=== PATIENT | male | born 1990 | race Caucasian/White ===

== ENCOUNTER 2018-09-23 23:06 | Emergency (ER) | payer OTHER ==
[2018-09-23 23:11] VITALS: BP 131/75; PULSE 94; TEMP 98.7; BMI 37.8
[2018-09-23] MEDS ORDERED: predniSONE 20 MG TABLET (UD) PO ONE (23:27)
[2018-09-23] MEDS ORDERED: ACYCLOVIR 400 MG TABLET PO ONE (23:27)
[2018-09-23] MEDS ORDERED: predniSONE 20 MG TABLET (UD) ONE (23:31)
[2018-09-23] MEDS ORDERED: ACYCLOVIR 400 MG TABLET ONE (23:31)
--- NOTE | 2018-09-23 23:33 | PDOC ---
History of Present Illness - General History Source: Patient Exam Limitations: No Limitations - History of Present Illness Initial Comments: 09/23/18 23:33 A portion of this note was documented by scribe services under my direction. I have reviewed the details of the note, within reason, and agree with the documentation with the following case summary and management plan written by me. Patient treated in the ED. Nursing notes are reviewed and incorporated into the medical decision-making. Vital signs reviewed. Assessment plan: This is a 28-year-old male who comes in complaining of left facial droop. 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 CAT scan was obtained Patient discharged home will follow-up with his primary care doctor. <Merlin Lubin I - Last Filed: 09/23/18 23:26> - General History Source: Patient Exam Limitations: No Limitations - History of Present Illness Initial Comments: 09/23/18 23:39 The patient is a 28 year old male with a significant PMH of asthma and diabetes who presents to the emergency department with left sided facial numbness since earlier today. The patient reports that he had eaten some leftover turkey today and soon after began feeling some itching in his throat by which he took Benadryl. The patient reports that soon after taking the benadryl he began to experience some pain behind his left ear as well as left sided facial and tongue numbness and inability to move his right side face. The patient reports that he is concerned for a allergic reaction. He states that his only known food allergy is to calamari. The patient reports some slight numbness in his fingertips of left hand on exam. He denies any other symptoms or complaints. He denies any other body numbness, weakness or tingling sensations. PAST MEDICAL HISTORY: asthma, diabetes PAST SURGICAL HISTORY: no significant history FAMILY HISTORY: no pertinent history SOCIAL HISTORY: Pt lives with family and is employed. MEDICATIONS: reviewed ALLERGIES: As per nursing notes General: No fevers or chills, no weakness, no weight loss HEENT: (+)sore throat, left ear pain. No change in vision. CardioVascular: No chest pain or shortness of breath Respiratory:No cough, or wheezing. Gastrointestinal: no nausea, vomiting, diarrhea or constipation, No rectal bleeding Genitourinary: No dysuria, hematuria, or frequency Musculoskeletal: No joint or muscle pain or swelling Neurologic: (+) left sided facial numbness.No headache, vertigo, dizziness or loss of consciousness Psychiatric: nor depression Skin: No rashes or easy bruising Endocrine: no increased thirst or abnormal weight change Allergic: no skin or latex allergy All other systems reviewed and normal General: Well-nourished well-developed individual, no acute distress HEENT: Throat: Normal, tonsils normal, no erythema or exudate Neck: Supple, no meningeal signs, no lymphadenopathy Eyes::Pupils equal reactive and round, extraocular motion intact Chest: Nontender to palpation Cardiac: S1-S2 normal, regular rate and rhythm, no murmurs rubs or gallops Respiratory: Lungs clear to auscultation bilateral Abdomen: Soft, nondistended, normal bowel sounds, nontender to palpation diffusely Extremities: Warm, dry, no cyanosis, clubbing, or edema Skin: No rashes Neuro: (+)facial droop (forehead involved). Alert and oriented x3, nonfocal exam , grossly intact, normal gait Psych: Normal mood and affect <Kelsi Araiza - Last Filed: 09/23/18 23:39> - General Chief Complaint: CVA/TIA Stated Complaint: NUMBNESS TO LEFT SIDE FACE Time Seen by Provider: 09/23/18 23:08 Past History - Past Medical History Asthma: Yes COPD: No Diabetes: Yes - Surgical History Appendectomy: Yes (2016) - Immunization History Immunization Up to Date: Yes - Suicide/Smoking/Psychosocial Hx Smoking History: Never smoked Have you smoked in the past 12 months: No Information on smoking cessation initiated: No Hx Alcohol Use: No Drug/Substance Use Hx: No Substance Use Type: None <Merlin Lubin I - Last Filed: 09/23/18 23:26> <Kelsi Araiza - Last Filed: 09/23/18 23:39> - Past Medical History Allergies/Adverse Reactions: Allergies Allergy/AdvReac Type Severity Reaction Status Date / Time pollen extracts Allergy Verified 09/23/18 23:08 squid Allergy Verified 09/23/18 23:08 Home Medications: Ambulatory Orders Naltrexone HCl/Bupropion HCl [Contrave ER 8-90 mg Tablet] 1 each PO DAILY Acyclovir [Zovirax -] 400 mg PO DAILY #10 tablet 09/23/18 Prednisone [Deltasone] 80 mg PO DAILY #40 tablet 09/23/18 Sitagliptin Phosphate [Januvia] 100 mg PO DAILY 09/23/18 *Physical Exam - Vital Signs Last Vital Signs Temp Pulse Resp BP Pulse Ox 98.7 F 94 H 18 131/75 100 09/23/18 23:08 09/23/18 23:08 09/23/18 23:08 09/23/18 23:08 09/23/18 23:08 <Merlin Lubin I - Last Filed: 09/23/18 23:26> - Vital Signs Last Vital Signs Temp Pulse Resp BP Pulse Ox 98.7 F 94 H 18 131/75 97 09/23/18 23:08 09/23/18 23:08 09/23/18 23:08 09/23/18 23:08 09/23/18 23:24 <Kelsi Araiza - Last Filed: 09/23/18 23:39> Moderate Sedation - Procedure Monitoring Vital Signs: Procedure Monitoring Vital Signs Temperature 98.7 F 09/23/18 23:08 Pulse Rate 94 H 09/23/18 23:08 Respiratory Rate 18 09/23/18 23:08 Blood Pressure 131/75 09/23/18 23:08 O2 Sat by Pulse Oximetry (%) 100 09/23/18 23:08 <Merlin Lubin I - Last Filed: 09/23/18 23:26> - Procedure Monitoring Vital Signs: Procedure Monitoring Vital Signs Temperature 98.7 F 09/23/18 23:08 Pulse Rate 94 H 09/23/18 23:08 Respiratory Rate 18 09/23/18 23:08 Blood Pressure 131/75 09/23/18 23:08 O2 Sat by Pulse Oximetry (%) 97 09/23/18 23:24 <Kelsi Araiza - Last Filed: 09/23/18 23:39> ED Treatment Course - RADIOLOGY Radiology Studies Ordered: Category Date Time Status HEAD CT WITHOUT CONTRAST [CT] Stat CT Scan 09/23/18 23:13 Ordered <Merlin Lubin I - Last Filed: 09/23/18 23:26> - Medications Given in the ED: ED Medications Discontinued Medications Generic Name Dose Route Start Last Admin Trade Name Freq PRN Reason Stop Dose Admin Acyclovir 400 mg 09/23/18 23:27 09/23/18 23:35 Zovirax - PO 09/23/18 23:28 400 mg ONCE ONE Administration Prednisone 80 mg 09/23/18 23:27 09/23/18 23:35 Deltasone - PO 09/23/18 23:28 80 mg ONCE ONE Administration <Kelsi Araiza - Last Filed: 09/23/18 23:39> *DC/Admit/Observation/Transfer <Merlin Lubin I - Last Filed: 09/23/18 23:26> - Attestations Scribe Attestion: 09/23/18 23:39 Documentation prepared by Kelsi Araiza, acting as medical science liaison for Merlin Lubin MD. <Kelsi Araiza - Last Filed: 09/23/18 23:39> Diagnosis at time of Disposition: Hamm's palsy - Discharge Dispostion Disposition: HOME - Prescriptions Prescriptions: Acyclovir [Zovirax -] 400 mg PO DAILY #10 tablet Prednisone [Deltasone] 80 mg PO DAILY #40 tablet - Patient Instructions Additional Instructions: Take acyclovir 400 mg a day for 10 days Take prednisone 80 mg a day for 5 days then 60 mg a day for 2 days, 40 mg a day for 2 days and 20 mg a day for 2 days. Return to the emergency department immediately with ANY new, persistent or worsening symptoms. Continue any medications as previously prescribed by your physician. You should follow up with your primary doctor as soon as possible regarding today's emergency department visit. . Please make sure your doctor reviews the results of your emergency evaluation. Thank you for coming to the Emergency Department today for your care. It was a pleasure to see you today. Please note that your evaluation is INCOMPLETE until you follow-up with your doctor.
== END 2018-09-24 00:56 | disposition home or self-care (01) ==
LOC: FER 23:06
DX: G51.0 Bell's palsy (principal); E11.9 Type 2 diabetes mellitus without complications; J45.909 Unspecified asthma, uncomplicated
CPT/HCPCS: 70450-TC; 99285-25

== ENCOUNTER 2018-10-17 15:07 | Emergency (ER) | payer OTHER ==
[2018-10-17 15:14] VITALS: BP 128/81; PULSE 96; TEMP 98.5; BMI 38.6
--- NOTE | 2018-10-17 16:13 | PDOC ---
History of Present Illness - General History Source: Patient Exam Limitations: No Limitations <Christina Cedillo - Last Filed: 10/17/18 16:51> <Gideon Freeman - Last Filed: 10/17/18 17:40> - General Chief Complaint: Chest Pain Stated Complaint: CHEST TIGHTNESS, ANXIETY, JITTERY Time Seen by Provider: 10/17/18 15:25 - History of Present Illness Initial Comments: 10/17/18 16:44 The patient is a 28-year-old male with a past medical history significant for asthma, DM and Hamm's palsy (L. eye diplopia and blurry vision) presents to the emergency department with chest pressure. The patient presents with nonexertional, episodic chest pressure, localized to the right chest wall, with no associated symptoms. The patient reports the pain would last for an hour before dissipating. The patient reports an additional concern of upper extremity shaking that presented last night. The patient reports hes been experiencing increased stress secondary to work and family matter. The patient reports he was out of work for a while and returned on . The patient reports he wears sunglasses secondary to photophobia to the Left eye. Denies nausea, vomiting, abdominal pain, diaphoresis, leg pain/swelling, cough, fever, chills, diarrhea, melena, hematochezia, dysuria, hematuria, frequency or urgency to urinate. The patient reports he has L. arm weakness secondary to Hamm s Allergies: PCP: Appointment with new PCP on November 10, Dr. Christina. Neurology: Appointment on the with Dr. Styles at [facility]. (Christina Cedillo) Past History <Christina Cedillo - Last Filed: 10/17/18 16:51> - Past Medical History Asthma: Yes COPD: No Diabetes: Yes - Surgical History Appendectomy: Yes (2015) - Immunization History Immunization Up to Date: Yes - Suicide/Smoking/Psychosocial Hx Smoking History: Never smoked Have you smoked in the past 12 months: No Information on smoking cessation initiated: No Hx Alcohol Use: (occasional) Drug/Substance Use Hx: No Substance Use Type: None <Gideon Freeman - Last Filed: 10/17/18 17:40> - Past Medical History Allergies/Adverse Reactions: Allergies Allergy/AdvReac Type Severity Reaction Status Date / Time pollen extracts Allergy Verified 10/17/18 15:08 squid Allergy Verified 10/17/18 15:08 Home Medications: Ambulatory Orders Naltrexone HCl/Bupropion HCl [Contrave ER 8-90 mg Tablet] 1 each PO DAILY Sitagliptin Phosphate [Januvia] 100 mg PO DAILY 09/23/18 Albuterol Sulfate Inhaler - [Ventolin Hfa Inhaler -] 1 - 2 inh PO QID PRN Alprazolam [Xanax] 0.25 mg PO Q12H PRN #10 tablet MDD 2 10/17/18 Review of Systems <Christina Cedillo - Last Filed: 10/17/18 16:51> - Review of Systems Able to Perform ROS?: Yes <Gideon Freeman - Last Filed: 10/17/18 17:40> - Review of Systems Comments:: 10/17/18 16:29 Constitutional - +jittery/shaky no reported Fever, Chills, HEENT: no reported vision changes, sore throat Respiratory: no reported cough, sob, hemoptysis Cardiac: +chest pain no reported palpitations, light headedness, leg swelling Abd/GI: no reported abd pain, nausea, vomiting, blood per rectum, melena, diarrhea : no reported dysuria, frequency, discharge Musculskelatal - no reported back pain, joint swelling skin - no reported bruising, erythema, rash neurological: no reported headache, numbness, focal weakness, tingling, ataxia, hematologic: no reported easy bruising, easy bleeding (Gideon Freeman) *Physical Exam <Christina Cedillo - Last Filed: 10/17/18 16:51> <Gideon Freeman - Last Filed: 10/17/18 17:40> - Vital Signs Last Vital Signs Temp Pulse Resp BP Pulse Ox 98.5 F 96 H 18 128/81 100 10/17/18 15:07 10/17/18 15:07 10/17/18 15:07 10/17/18 15:07 10/17/18 15:07 - Physical Exam Comments: 10/17/18 16:30 GENERAL: The patient is awake, alert, and fully oriented, Nontoxic - in no acute distress. HEAD: Normocephalic, atraumatic. EYES: extraocular movements intact, sclera anicteric, conjunctiva clear. ENT: Normal voice, Moist mucous membranes. NECK: Normal range of motion, supple LUNGS: Breath sounds equal, clear to auscultation bilaterally. No wheezes, no rhonchi, no rales. HEART: Regular rate and rhythm, normal S1 and S2 without murmur, rub or gallop. reproducible ttp to R chest wall w/o rashes ABDOMEN: Soft, nontender, normoactive bowel sounds. No guarding, no rebound. . No CVA tenderness EXTREMITIES: Normal range of motion, no edema. NEUROLOGICAL: L facial droop, Normal speech, intention tremors of R hand PSYCH: Normal mood, anxious appearing SKIN: Warm, Dry, normal turgor, (Gideon Freeman) Heart Score/ECG Review <Christina Cedillo - Last Filed: 10/17/18 16:51> <Gideon Freeman - Last Filed: 10/17/18 17:40> - ECG Impressions Comment:: 10/17/18 16:35 Twelve-lead EKG was performed and reviewed by me. There is normal sinus rhythm with a normal rate. rate of 96 The axis is normal. The intervals are normal. There is normal R wave progression nonspecific TWI (Gideon Freeman) - ADDITIONAL ORDERS Additional order review: Laboratory Results 10/17/18 15:19 POC Glucometer 126 10/17/18 15:19 POC Glucometer 126 - RADIOLOGY Radiology Studies Ordered: Category Date Time Status CHEST PA & LAT [RAD] Stat Radiology 10/17/18 16:26 Taken - Medications Given in the ED: ED Medications Discontinued Medications Generic Name Dose Route Start Last Admin Trade Name Cammie PRN Reason Stop Dose Admin Alprazolam 0.25 mg 10/17/18 16:27 10/17/18 16:32 Xanax - PO 10/17/18 16:28 0.25 mg ONCE ONE Administration Ibuprofen 400 mg 10/17/18 16:26 10/17/18 16:32 Motrin - PO 10/17/18 16:27 400 mg ONCE ONE Administration Medical Decision Making <Christina Cedillo - Last Filed: 10/17/18 16:51> <Gideon Freeman - Last Filed: 10/17/18 17:40> - Medical Decision Making 10/17/18 16:37 28y M hx recent hx of bells palsy presents with 1 eday of feeling shaky, intermittent R sided chest pressur ethat is reproducible to palpation, and feeling anxious - no exertional symptoms, his sx are presentw hen he starts thinking about work and his wifes immigration case but resolves when he is distracted. ekg here is non ischemic will obtain cxr to r/o acute pulm disease tylenol for his msk pain and xanax for anxiety low suspicion for acs - suspect anxiety related A portion of this note was documented by scribe services under my direction. I have reviewed the details of the note, within reason, and agree with the documentation with the following case summary and management plan written by me 10/17/18 17:34 pt feeling better cxr negative will dc with pmd fu will give a couple of doses of xanax to help him cope I discussed the physical exam findings, ancillary test results and final diagnoses with the patient. I answered all of the patient's questions. The patient was satisfied with the care received and felt comfortable with the discharge plan and treatment plan. The patient will call their primary care physician within 24 hours to arrange follow-up and will return to the Emergency Department with any new, persistent or worsening symptoms. (Gideon Freeman) *DC/Admit/Observation/Transfer <Christina Cedillo - Last Filed: 10/17/18 16:51> - Discharge Dispostion Decision to Admit order: No <Gideon Freeman - Last Filed: 10/17/18 17:40> Diagnosis at time of Disposition: Anxiety - Discharge Dispostion Disposition: HOME Condition at time of disposition: Improved - Referrals Referrals: [facility] [place] [facility] [place] [Provider Group] - Patient Instructions Printed Discharge Instructions: DI for Anxiety -- Adult Additional Instructions: Return to the emergency department immediately with ANY new, persistent or worsening symptoms including shortness of breath, chest pain when you are exerting yourself, or any other concerns. I suspect that your symptoms may be due to anxiety. Take the Xanax as prescribed if you feel anxious. Dont take it when driving or anywhere you can put yourself or others at risk. You MUST call and follow up with your doctor in 4-5 days for further evaluation of your symptoms. Results were discussed with you. Please make sure your doctor reviews the results of your emergency evaluation. Print Language: VIETNAMESE - Attestations Scribe Attestion: 10/17/18 16:45 Documentation prepared by Christina Cedillo, acting as medical facilities section director for Gideon Freeman MD. (Christina Cedillo)
[2018-10-17] MEDS ORDERED: IBUPROFEN 400 MG TABLET (FP) PO ONE ×2 (16:26→16:28)
[2018-10-17] MEDS ORDERED: ALPRAZolam 0.25 MG TABLET PO ONE (16:27)
[2018-10-17] MEDS ORDERED: ALPRAZolam 0.25 MG TABLET ONE (16:29)
--- NOTE | 2018-10-19 10:41 | EKG ---
Test Reason : Blood Pressure : / mmHG Vent. Rate : 096 BPM Atrial Rate : 096 BPM P-R Int : 132 ms QRS Dur : 090 ms QT Int : 338 ms P-R-T Axes : -01 -11 014 degrees QTc Int : 427 ms NORMAL SINUS RHYTHM NONSPECIFIC T WAVE ABNORMALITY ABNORMAL ECG NO PREVIOUS ECGS AVAILABLE Confirmed by EILEEN BRYANT, VALENCIA ([id number]) on 10/19/2018 10:41:15 AM Referred By: IRVIN Confirmed By:VALENCIA ARELLANO MD
== END 2018-10-17 17:55 | disposition home or self-care (01) ==
LOC: FER 15:07
DX: F41.9 Anxiety disorder, unspecified (principal)
CPT/HCPCS: 71046-TC-FY; 82962; 93005; 99284-25

== ENCOUNTER 2019-09-08 12:38 | Emergency (ER) | payer OTHER ==
[2019-09-08 12:53] VITALS: BP 117/76; PULSE 106; TEMP 98.5; BMI 37.4
--- NOTE | 2019-09-08 14:10 | PDOC ---
History of Present Illness - General Chief Complaint: Sore Throat Stated Complaint: POS FOR STREP Time Seen by Provider: 09/08/19 13:06 - History of Present Illness Initial Comments: 09/08/19 14:07 29-year-old male without comorbidities presents for evaluation of fever. Patient 4 days into a course of penicillin for strep throat complains of fever. Past History - Past Medical History Allergies/Adverse Reactions: Allergies Allergy/AdvReac Type Severity Reaction Status Date / Time pollen extracts Allergy Verified 09/08/19 12:53 squid Allergy Verified 09/08/19 12:53 Home Medications: Ambulatory Orders Naltrexone HCl/Bupropion HCl [Contrave ER 8-90 mg Tablet] 1 each PO DAILY 12/22/15 Sitagliptin Phosphate [Januvia] 100 mg PO DAILY 09/23/18 Albuterol Sulfate Inhaler - [Ventolin Hfa Inhaler -] 1 - 2 inh PO QID PRN 10/17/18 Alprazolam [Xanax] 0.25 mg PO Q12H PRN #10 tablet MDD 2 10/17/18 Asthma: Yes COPD: No Diabetes: Yes - Surgical History Appendectomy: Yes (2015) - Immunization History Immunization Up to Date: Yes - Psycho Social/Smoking Cessation Hx Smoking History: Never smoked Have you smoked in the past 12 months: No Information on smoking cessation initiated: No Hx Alcohol Use: No Drug/Substance Use Hx: No Substance Use Type: None Review of Systems - Review of Systems Constitutional: Yes: Fever *Physical Exam - Vital Signs Last Vital Signs Temp Pulse Resp BP Pulse Ox 98.5 F 106 H 18 117/76 99 09/08/19 12:50 09/08/19 12:50 09/08/19 12:50 09/08/19 12:50 09/08/19 12:50 - Physical Exam 09/08/19 14:07 GENERAL: The patient is awake, alert, and fully oriented, in no acute distress. HEAD: Normal with no signs of trauma. EYES: sclera anicteric, conjunctiva clear. ENT: Ears normal tympanic membranes normal oropharynx clear uvula midline NECK: Normal range of motion LUNGS: Breath sounds equal, clear to auscultation bilaterally. No wheezes, and no crackles. HEART: S1 and S2 without murmur, rub or gallop. ABDOMEN: Soft, nontender, normoactive bowel sounds. No guarding, no rebound. No masses. EXTREMITIES: Normal range of motion, no edema. No clubbing or cyanosis. No cords, erythema, or tenderness. NEUROLOGICAL: Cranial nerves II through XII grossly intact. PSYCH: Normal mood, normal affect. SKIN: Warm, Dry, normal turgor, no rashes or lesions noted. Medical Decision Making - Medical Decision Making 09/08/19 14:09 Discussed the use of Tylenol and Motrin. And the need to finish the antibiotics I have reviewed the pathophysiology with the patient. They are in agreement with the treatment plan all questions were answered to their satisfaction. Understanding for follow-up without fail was also conveyed to the patient. Again they are in agreement. Discharge - Discharge Information Problems reviewed: Yes Clinical Impression/Diagnosis: Fever Condition: Stable Disposition: HOME - Admission No - Follow up/Referral Referrals: [facility] Pennington [Primary Care Provider] - - Patient Discharge Instructions Additional Instructions: Return to the emergency room for worsening symptoms continue Tylenol as directed and without fail follow-up with your primary care physician in 1 to 2 days for further evaluation and treatment options. Also continue Motrin as directed - Post Discharge Activity
== END 2019-09-08 14:20 | disposition home or self-care (01) ==
LOC: JERFT 12:38
DX: R50.9 Fever, unspecified (principal); Z91.013 Allergy to seafood; Z91.09 Other allergy status, other than to drugs and biological substances; E11.9 Type 2 diabetes mellitus without complications; J45.909 Unspecified asthma, uncomplicated
CPT/HCPCS: 99281-25

== ENCOUNTER 2020-02-03 15:43 | Emergency (ER) | payer OTHER ==
[2020-02-03 15:48] VITALS: BMI 39.8
[2020-02-03 16:43] VITALS: BP 141/81; PULSE 89; TEMP 98.3
--- NOTE | 2020-02-03 16:55 | PDOC ---
Attending Attestation - Resident Resident Name: Sophia Cordero - HPI HPI: 02/03/20 18:28 Pt presents to the ED complaining of atraumatic back pain after lifting a heavy television. Denies neurologic, bowel or bladder complaints. Ambulatory in the ED. 02/03/20 18:32 - Physicial Exam PE: 02/03/20 18:30 Agree with resident exam. PAteint is alert and oriented and in no acute distress. Neuro: intact strength in lower extremities, ambulatory with normal gait. Back; no tenderness, full ROM. - Medical Decision Making 02/03/20 18:31 Pt presents to the ED complaining of atraumatic back pain. No signs or symptoms suggestive of cord compression, aortic or renal disease. Will discharge home wih NSAIDS for pain and instructions to return to the ED for worsening symptoms. 02/03/20 18:32 Discharge - Discharge Information Problems reviewed: Yes Clinical Impression/Diagnosis: Otitis media Qualifiers: Otitis media type: unspecified Chronicity: acute Qualified Code(s): H66.90 - Otitis media, unspecified, unspecified ear Low back pain Qualifiers: Chronicity: chronic Back pain laterality: left Sciatica presence: without sciatica Qualified Code(s): M54.5 - Low back pain Condition: Good Disposition: HOME - Additional Discharge Information Prescriptions: Cetirizine HCl [All Day Allergy] 10 mg PO DAILY #30 capsule Ibuprofen [Motrin -] 800 mg PO DAILY PRN #30 tablet PRN Reason: Back Pain Sodium Chloride [Saline Mist] 44 ml NS DAILY #1 bottle - Follow up/Referral Referrals: [facility] [place] [facility] [place] [Provider Group] - Patient Discharge Instructions Patient Printed Discharge Instructions: DI for Low Back Pain, DI for Otitis Media (Middle Ear Infection)-Child, DI for Nasal Congestion Additional Instructions: You were seen in the ER today for back pain and ear infection. Please follow-up with your primary care doctor and ENT within 1-2 days to discuss your visit and make sure your symptoms have improved. Please return to the ER if you have any worsening pain, development of fevers or chills, loss of consciousness, inability to tolerate food or fluids, or any other concerns. I have sent medications to your pharmacy. Please take these medications as prescribed. Please continue to take your antibiotics for your ear infection as prescribed. You can take tylenol or motrin every 4-6 hours as needed for pain. - Post Discharge Activity Work/Back to School Note: Back to Work
[2020-02-03] MEDS ORDERED: KETOROLAC TROMETHAMINE 60 MG/2 ML VIAL IM ONE (16:59)
[2020-02-03] MEDS ORDERED: IBUPROFEN 400 MG TABLET (FP) PO ONE ×2 (17:02→17:03)
--- NOTE | 2020-02-03 17:04 | PDOC ---
History of Present Illness - General Chief Complaint: Pain, Acute Stated Complaint: LOW BACK PAIN Time Seen by Provider: 02/03/20 16:55 History Source: Patient Exam Limitations: No Limitations - History of Present Illness Initial Comments: Pt is a 29 yo M, with PMH of HLD and DM, who is presenting with complaints of b/l lower back pain since yesterday after lifting a heavy (~20-30 lbs) television from the wall brackets. Pt states the pain is b/l in his lower back, with no radiation, and is worse with standing up straight and trying to lie on his back in bed. Pt has not taken analgesics before arrival. Pt also would like to have his ears checked, as he is being treated "for an ear infection" by his PCP (cannot recall antibiotic name). Pt denies any fevers/chills, headache, ear drainage, vision changes, syncope, chest pain, palpitations, SOB, nausea/vomiting, abdominal pain, urinary symptoms, diarrhea/constipation, incontinence of urine or stool, numbness/weakness/parasthesias in the extremities, or leg swelling. Allergies: NKDA Social: Pt denies any cigarette, alcohol, or drug use. Pt denies any recent travel or sick contacts. Surgical: no relevant history. Family: no relevant history. 03/02/20 09:16 03/02/20 09:19 Past History - Travel History Traveled outside of the country in the last 30 days: No Close contact w/someone who was outside of country & ill: No - Medical History Allergies/Adverse Reactions: Allergies Allergy/AdvReac Type Severity Reaction Status Date / Time pollen extracts Allergy Verified 02/03/20 15:44 squid Allergy Verified 02/03/20 15:44 Home Medications: Ambulatory Orders Sitagliptin Phosphate [Januvia] 50 mg PO DAILY 09/23/18 Atorvastatin Calcium [Lipitor] 10 mg PO DAILY 02/03/20 Cetirizine HCl [All Day Allergy] 10 mg PO DAILY #30 capsule 02/03/20 Ibuprofen [Motrin -] 800 mg PO DAILY PRN #30 tablet 02/03/20 Sodium Chloride [Saline Mist] 44 ml NS DAILY #1 bottle 02/03/20 Asthma: Yes COPD: No Diabetes: Yes - Surgical History Appendectomy: Yes (2015) - Immunization History Immunization Up to Date: Yes - Psycho-Social/Smoking History Smoking History: Never smoked Have you smoked in the past 12 months: No Cigars Per Day: 1 - Substance Abuse Hx (Audit-C & DAST Scrn) How often the patient has a drink containing alcohol: Monthly or less Number of drinks the patient has on a typical day: 1 or 2 How often the patient has six or more drinks on one occasion: Never Score: In Men: 4 or > Positive; In Women: 3 or > Positive: 1 Screen Result (Pos requires Nsg. Audit-10AR): Negative In the last yr the pt used illegal drug/Rx for NonMed reason: No Score: Yes response is considered Positive: 0 Screen Result (Positive result requires Nsg. DAST-10): Negative Trauma Specific PMHX - Complaint Specific PMHX Arthritis: No Back Injury: No Neck Injury: No Hx Sacro Iliac Joint Dysfunction: No Review of Systems - Review of Systems Able to Perform ROS?: Yes Is the patient limited Stateless proficient: No Constitutional: Yes: Weight Stable. No: Chills, Diaphoresis, Fever, Loss of Appetite, Malaise, Weakness HEENTM: Yes: Nose Congestion. No: Recent change in vision, Tinnitus, Hearing Loss, Throat Pain, Throat Swelling, Difficulty Swallowing Respiratory: No: Cough, Orthopnea, Shortness of Breath Cardiac (ROS): No: Chest Pain, Edema, Irregular Heart Rate, Lightheadedness, Palpitations, Syncope, Chest Tightness ABD/GI: No: Constipated, Diarrhea, Nausea, Poor Appetite, Poor Fluid Intake, Vomiting : No: Burning, Dysuria, Frequency, Flank Pain, Hematuria, Pain, Urgency Musculoskeletal: Yes: See HPI, Back Pain, Muscle Pain. No: Joint Pain, Joint Swelling, Muscle Weakness, Neck Pain, Joint Stiffness Integumentary: No: Bruising, Lesions, Rash Neurological: No: Headache, Numbness, Paresthesia, Tingling, Weakness, Unsteady Gait, Dizziness Psychiatric: No: Sleep Pattern Change, Change in Appetite Endocrine: No: Increased Urine, Change in Weight Hematologic/Lymphatic: No: Anemia, Blood Clots, Easy Bleeding, Easy Bruising All Other Systems: Reviewed and Negative *Physical Exam - Vital Signs Last Vital Signs Temp Pulse Resp BP Pulse Ox 98.3 F 89 19 141/81 100 02/03/20 15:43 02/03/20 15:43 02/03/20 15:43 02/03/20 15:43 02/03/20 15:43 - Physical Exam Vitals stable, pt afebrile. Pt in NAD, ambulatory in ED without assistance. Morbidly obese body habitus. Pt alert and oriented x3. outboard technician generally intact, muscular strength and sensation intact. No midline spinal tenderness, step-offs, or crepitus. +mild paraspinal lumbar TTP. Head normocephalic, atraumatic. Eyes PERRLA, EOMI. Oropharynx without erythema or exudates, no LAD b/l. +nasal congestion with boggy nasal turbinates Hearing intact. +b/l TM erythema without significant bulging and no rupture. Clear heart sounds, S1/S2, no JVD, b/l pedal edema, or heart murmur. Clear lung sounds, no respiratory distress, wheezes, crackles, or accessory muscle use. No abdominal or CVA tenderness to palpation, no rebound, no guarding. Abdomen soft, non-distended, and with normoactive bowel sounds. Skin without jaundice or rash. 03/02/20 09:21 Medical Decision Making - Medical Decision Making Pt was seen at bedside, also will be seen by attending Dr. Jay. Pt presenting with non-traumatic b/l paraspinal lower back pain. Ambulatory in ED, VSS and afebrile, no red flag symptoms for compression. Ears showed b/l erythema and boggy nasal congestion. Likely 2/2 congestion/viral. Provided 60 mg IM toradol and 800 mg PO ibuprofen for improvement of pain. Will continue to reassess pt and monitor for symptomatic improvement. 03/02/20 09:25 -Pt symptomatically improved. -Sent 800 mg PO ibuprofen to pts pharmacy -Can continue abx for b/l AOM as prescribed by PCP Pt can be discharged to home with follow-up. Pt advised to follow-up with PCP in 1-2 days. Strict return precautions provided with pt understanding. 03/02/20 09:26 Discharge - Discharge Information Problems reviewed: Yes Clinical Impression/Diagnosis: Otitis media Qualifiers: Otitis media type: unspecified Chronicity: acute Qualified Code(s): H66.90 - Otitis media, unspecified, unspecified ear Low back pain Qualifiers: Chronicity: chronic Back pain laterality: left Sciatica presence: without sciatica Qualified Code(s): M54.5 - Low back pain Condition: Good Disposition: HOME - Admission No - Additional Discharge Information Prescriptions: Cetirizine HCl [All Day Allergy] 10 mg PO DAILY #30 capsule Ibuprofen [Motrin -] 800 mg PO DAILY PRN #30 tablet PRN Reason: Back Pain Sodium Chloride [Saline Mist] 44 ml NS DAILY #1 bottle - Follow up/Referral Referrals: [facility] [place] [Provider Group] - Patient Discharge Instructions Patient Printed Discharge Instructions: DI for Low Back Pain, DI for Otitis Media (Middle Ear Infection)-Child, DI for Nasal Congestion Additional Instructions: You were seen in the ER today for back pain and ear infection. Please follow-up with your primary care doctor and ENT within 1-2 days to discuss your visit and make sure your symptoms have improved. Please return to the ER if you have any worsening pain, development of fevers or chills, loss of consciousness, inability to tolerate food or fluids, or any other concerns. I have sent medications to your pharmacy. Please take these medications as prescribed. Please continue to take your antibiotics for your ear infection as prescribed. You can take tylenol or motrin every 4-6 hours as needed for pain. - Post Discharge Activity Work/Back to School Note: Back to Work
== END 2020-02-03 17:13 | disposition home or self-care (01) ==
LOC: FER 15:43
PROC: 3E0333Z Introduction of Anti-inflammatory into Peripheral Vein, Percutaneous Approach (ICD-10-PCS; principal; 2020-02-03)
DX: H66.90 Otitis media, unspecified, unspecified ear (principal); M54.5 Low back pain
CPT/HCPCS: 99284-25

== ENCOUNTER 2021-05-10 06:43 | Emergency (ER) | payer SELFPAY ==
[2021-05-10 07:35] VITALS: BP 120/68; PULSE 82; TEMP 98.8; BMI 40.8
[2021-05-10] MEDS ORDERED: KETOROLAC TROMETHAMINE 30 MG/1 ML VIAL IM ONE (07:38)
[2021-05-10] MEDS ORDERED: KETOROLAC TROMETHAMINE 30 MG/1 ML VIAL ONE (07:41)
== END 2021-05-10 08:51 | disposition home or self-care (01) ==
LOC: JER 06:43
PROC: 3E0233Z Introduction of Anti-inflammatory into Muscle, Percutaneous Approach (ICD-10-PCS; principal; 2021-05-10)
DX: G56.01 Carpal tunnel syndrome, right upper limb (principal)
CPT/HCPCS: 99284-25

== ENCOUNTER 2021-07-11 23:33 | Emergency (ER) | payer OTHER ==
[2021-07-11] MEDS ORDERED: SODIUM CHLORIDE 1,000 ML IV STA (23:37)
[2021-07-11] MEDS ORDERED: KETOROLAC TROMETHAMINE 30 MG/1 ML VIAL IVPUSH ONE (23:37)
[2021-07-11] MEDS ORDERED: HYDROmorphone HCL CARPU-JECT 1 MG/1 ML DISP.SYRIN IVPUSH ONE (23:45)
[2021-07-12 00:21] VITALS: BMI 39.4
[2021-07-12 01:38] VITALS: BP 105/54; PULSE 94; TEMP 98.8
== END 2021-07-12 01:43 | disposition home or self-care (01) ==
LOC: FER 23:33
PROC: 3E033NZ Introduction of Analgesics, Hypnotics, Sedatives into Peripheral Vein, Percutaneous Approach (ICD-10-PCS; principal; 2021-07-11)
PROC: 3E0333Z Introduction of Anti-inflammatory into Peripheral Vein, Percutaneous Approach (ICD-10-PCS; 2021-07-11)
PROC: 3E0337Z Introduction of Electrolytic and Water Balance Substance into Peripheral Vein, Percutaneous Approach (ICD-10-PCS; 2021-07-11)
DX: N23 Unspecified renal colic (principal)
CPT/HCPCS: 74176-TC; 99284-25

== ENCOUNTER 2021-11-13 22:08 | Emergency (ER) | payer OTHER ==
[2021-11-13] MEDS ORDERED: SODIUM CHLORIDE 1,000 ML IV ONE (22:12)
[2021-11-13] MEDS ORDERED: HYDROmorphone HCL CARPU-JECT 1 MG/1 ML DISP.SYRIN IVPUSH ONE ×3 (22:12→23:32)
[2021-11-13] MEDS ORDERED: HYDROmorphone HCL/PF 1 MG/ML VIAL ONE ×3 (22:12→23:34)
[2021-11-13] MEDS ORDERED: ONDANSETRON 4 MG/2 ML VIAL IVPUSH ONE (22:15)
[2021-11-13] MEDS ORDERED: ONDANSETRON 4 MG/2 ML VIAL ONE (22:15)
[2021-11-13 22:29] VITALS: PULSE 98; BMI 39.4
[2021-11-13 22:50] LABS: HEMOGLOBIN 15.6 G/dL (11.7-16.9); MCH 30.3 pg (25.7-33.7); MCHC 34.8 g/dl (32.0-35.9); MEAN CELL VOLUME 87.3 fl (80-96); MEAN PLT VOLUME 8.5 fl (7.5-11.1); PLATELET COUNT 233.4 10^3/uL (134-434); RBC 5.16 10^6/uL (4.00-5.60); RDW 13.9 % (11.9-15.9); WHITE BLOOD COUNT 11.5 10^3/uL (4.0-10.8)
[2021-11-13 22:55] LABS: PLATELET ESTIMATE ADEQUATE
[2021-11-13 23:02] LABS: ALBUMIN 4.3 g/dl (3.4-5.0); BILIRUBIN,TOTAL 0.8 mg/dl (0.2-1); CALCIUM 9.6 mg/dl (8.5-10); CREATININE 1.2 mg/dl (0.55-1.3)
[2021-11-13 23:04] LABS: EPITHELIAL CELLS RARE /hpf
[2021-11-13 23:54] VITALS: BP 134/79
== END 2021-11-13 23:56 | disposition home or self-care (01) ==
LOC: FER 22:08
PROC: 3E033GC Introduction of Other Therapeutic Substance into Peripheral Vein, Percutaneous Approach (ICD-10-PCS; principal; 2021-11-13)
DX: N20.0 Calculus of kidney (principal)
CPT/HCPCS: 36415; 74176-TC; 80053; 81003; 81015; 85025; 87086; 87186; 99285-25

== ENCOUNTER 2021-11-17 06:33 | Inpatient (IN) | payer OTHER ==
[2021-11-17] MEDS ORDERED: SODIUM CHLORIDE 0.9% 500 ML INFUS.BAG IV ONE (07:28)
[2021-11-17] MEDS ORDERED: ONDANSETRON 4 MG/2 ML VIAL IVPUSH ONE ×2 (07:33→08:55)
[2021-11-17] MEDS ORDERED: KETOROLAC TROMETHAMINE 15 MG/ML VIAL IVPUSH ONE (07:33)
[2021-11-17] MEDS ORDERED: KETOROLAC TROMETHAMINE 15 MG/ML VIAL ONE (07:38)
[2021-11-17] MEDS ORDERED: ONDANSETRON 4 MG/2 ML VIAL ONE ×2 (07:38→08:55)
[2021-11-17] MEDS ORDERED: CEFTRIAXONE 2,000 MG in DEXTROSE 5%-WATER - 50 ML IVPB ONE (07:58)
[2021-11-17] MEDS ORDERED: HYDROmorphone HCL CARPU-JECT 2 MG/1 ML DISP.SYRIN IVPUSH ONE ×2 (08:13→11:35)
[2021-11-17] MEDS ORDERED: HYDROmorphone HCl 2 MG/ML VIAL ONE ×2 (08:15→11:35)
[2021-11-17 08:24] LABS: ALBUMIN 3.6 g/dl (3.4-5.0); BLOOD UREA NITROGEN 15.5 mg/dL (7-18)
[2021-11-17 08:25] LABS: URINE APPEARANCE CLEAR; URINE BILIRUBIN NEGATIVE (NEGATIVE); URINE COLOR YELLOW; URINE GLUCOSE (UA) 1+ (NEGATIVE); URINE KETONE 3+ (NEGATIVE); URINE LEUK ESTERASE NEGATIVE (NEGATIVE); URINE NITRITE NEGATIVE (NEGATIVE); URINE PROTEIN NEGATIVE (NEGATIVE)
[2021-11-17 08:26] LABS: BASO % 0.2 % (0-2.0); EOS % 0.2 % (0-4.5); HEMATOCRIT 42.1 % (35.4-49); HEMOGLOBIN 14.6 GM/dL (11.7-16.9); LYMPH % 16.7 % (8-40); MCH 29.9 pg (25.7-33.7); MCHC 34.6 g/dl (32.0-35.9); MEAN CELL VOLUME 86.3 fl (80-96); MEAN PLT VOLUME 8.4 fl (7.5-11.1); NEUT % 75.9 % (42.8-82.8); PLATELET COUNT 225 10^3/uL (134-434); RBC 4.87 M/mm3 (4.00-5.60); RDW 13.3 % (11.9-15.9)
[2021-11-17 08:27] LABS: CREATININE 1.3 mg/dL (0.55-1.3)
[2021-11-17 08:29] LABS: BILIRUBIN,TOTAL 0.7 mg/dL (0.2-1); TOT PROT 7.4 g/dl (6.4-8.2)
[2021-11-17] MEDS ORDERED: CEFTRIAXONE 2 GM/100 ML BAG IVPB ONE (08:54)
[2021-11-17 09:24] LABS: INR 1.13 (0.83-1.09)
[2021-11-17 09:27] LABS: ACTIVATED PTT 30.8 SECONDS (25.2-36.5)
[2021-11-17 13:31] VITALS: BMI 39.3
[2021-11-17] MEDS: SODIUM CHLORIDE 1,000 ML IV SCH (13:47)
[2021-11-17] MEDS: INSULIN (NOVOLOG) ASPART 100 UNITS/ML 10ML VIAL SQ SCH (16:59)
[2021-11-18] MEDS: SODIUM CHLORIDE 1,000 ML IV SCH ×2 (00:51→13:40)
[2021-11-18] MEDS: ACETAMINOPHEN 325 MG TABLET (FP) PO PRN ×2 (01:24→13:43)
[2021-11-18] MEDS ORDERED: ACETAMINOPHEN 1000 MG/100 ML BAG IVPB ONE (05:41)
[2021-11-18] MEDS: INSULIN (NOVOLOG) ASPART 100 UNITS/ML 10ML VIAL SQ SCH ×3 (06:06→16:26)
[2021-11-18 08:36] LABS: BASO % 0.7 % (0-2.0); EOS % 1.6 % (0-4.5); HEMATOCRIT 39.2 % (35.4-49); HEMOGLOBIN 13.5 GM/dL (11.7-16.9); LYMPH % 32.7 % (8-40); MCHC 34.5 g/dl (32.0-35.9); MEAN CELL VOLUME 87.1 fl (80-96); MEAN PLT VOLUME 7.9 fl (7.5-11.1); MONO % 7.4 % (3.8-10.2); NEUT % 57.6 % (42.8-82.8); PLATELET COUNT 209 10^3/uL (134-434); RBC 4.51 M/mm3 (4.00-5.60); RDW 13.4 % (11.9-15.9); WHITE BLOOD COUNT 6.3 K/mm3 (4.0-10.0)
[2021-11-18 08:56] LABS: ALBUMIN 3.2 g/dl (3.4-5.0); BLOOD UREA NITROGEN 19.5 mg/dL (7-18); CALCIUM 8.7 mg/dL (8.5-10.1)
[2021-11-18 09:00] LABS: CREATININE 1.4 mg/dL (0.55-1.3)
[2021-11-18 09:02] LABS: BILIRUBIN,TOTAL 0.7 mg/dL (0.2-1); TOT PROT 6.6 g/dl (6.4-8.2)
[2021-11-18] MEDS ORDERED: cefTRIAXone SODIUM 1 GM VIAL ONE (09:14)
[2021-11-18] MEDS ORDERED: DEXTROSE 5%-WATER - 50 ML IVPB ONE (09:15)
[2021-11-18] MEDS: CEFTRIAXONE 1 GM in DEXTROSE 5%-WATER - 50 ML IVPB SCH (09:17)
[2021-11-18] MEDS: ENOXAPARIN NA (PORCINE) 40 MG/0.4 ML DISP.SYRIN SQ SCH (09:18)
[2021-11-18] MEDS ORDERED: HYDROmorphone HCl 2 MG/ML VIAL IVPB ONE (11:30)
[2021-11-18] MEDS ORDERED: INSULIN (NOVOLOG) ASPART 100 UNITS/ML 10ML VIAL ONE (11:34)
[2021-11-19] MEDS: SODIUM CHLORIDE 1,000 ML IV SCH ×3 (03:40→21:49)
[2021-11-19] MEDS: INSULIN (NOVOLOG) ASPART 100 UNITS/ML 10ML VIAL SQ SCH ×3 (06:35→18:35)
[2021-11-19] MEDS ORDERED: cefTRIAXone SODIUM 1 GM VIAL ONE (09:35)
[2021-11-19] MEDS ORDERED: DEXTROSE 5%-WATER - 50 ML IVPB ONE (09:35)
[2021-11-19] MEDS: CEFTRIAXONE 1 GM in DEXTROSE 5%-WATER - 50 ML IVPB SCH (10:30)
[2021-11-19] MEDS: ENOXAPARIN NA (PORCINE) 40 MG/0.4 ML DISP.SYRIN SQ SCH (11:30)
[2021-11-19] MEDS ORDERED: TAMSULOSIN HCL 0.4 MG CAP PO ONE (11:35)
[2021-11-19] MEDS ORDERED: HYDROmorphone HCl 2 MG/ML VIAL IVPUSH ONE (12:00)
[2021-11-19] MEDS ORDERED: INSULIN (NOVOLOG) ASPART 100 UNITS/ML 10ML VIAL ONE (12:29)
[2021-11-19 12:41] LABS: BASO % 0.4 % (0-2.0); EOS % 1.2 % (0-4.5); HEMATOCRIT 41.9 % (35.4-49); HEMOGLOBIN 14.5 GM/dL (11.7-16.9); LYMPH % 31.6 % (8-40); MCHC 34.7 g/dl (32.0-35.9); MEAN CELL VOLUME 86.6 fl (80-96); MEAN PLT VOLUME 8.1 fl (7.5-11.1); MONO % 8.2 % (3.8-10.2); NEUT % 58.6 % (42.8-82.8); PLATELET COUNT 239 10^3/uL (134-434); RBC 4.84 M/mm3 (4.00-5.60); RDW 13.1 % (11.9-15.9); WHITE BLOOD COUNT 6.9 K/mm3 (4.0-10.0)
[2021-11-19 12:50] LABS: ALBUMIN 3.5 g/dl (3.4-5.0); CALCIUM 9.4 mg/dL (8.5-10.1); CREATININE 1.2 mg/dL (0.55-1.3)
[2021-11-19 12:52] LABS: BILIRUBIN,TOTAL 0.6 mg/dL (0.2-1); TOT PROT 7.6 g/dl (6.4-8.2)
[2021-11-19] MEDS ORDERED: ONDANSETRON 4 MG/2 ML VIAL IVPUSH PRN ×2 (16:16→18:00)
[2021-11-19] MEDS ORDERED: MIDAZOLAM HCL 2 MG/2 ML SINGLE DOSE VIAL ONE (16:17)
[2021-11-19] MEDS ORDERED: FENTANYL CITRATE/PF 50 MCG/ML VIAL ONE ×2 (16:17→16:45)
[2021-11-19] MEDS ORDERED: PROPOFOL 20 ML ONE (16:17)
[2021-11-19] MEDS ORDERED: LIDOCAINE HCL/PF 2% SDV 5ML VIAL ONE (16:39)
[2021-11-19] MEDS ORDERED: KETOROLAC TROMETHAMINE 30 MG/1 ML VIAL ONE (16:39)
[2021-11-19] MEDS ORDERED: DEXAMETHASONE SOD PHOSPHATE 4 MG/1 ML VIAL ONE (16:39)
[2021-11-19] MEDS ORDERED: KETOROLAC TROMETHAMINE 15 MG/ML VIAL IM PRN ×2 (17:01→18:00)
[2021-11-19] MEDS: FAMOTIDINE 20 MG TABLET PO SCH (21:49)
[2021-11-19] MEDS ORDERED: FAMOTIDINE 20 MG TABLET PO SCH (22:00)
[2021-11-20] MEDS: INSULIN SLIDING SCALE (NOVOLOG) 1 VIAL SQ SCH ×2 (06:11→12:41)
[2021-11-20] MEDS ORDERED: TAMSULOSIN HCL 0.4 MG CAP PO SCH ×2 (08:30)
[2021-11-20] MEDS ORDERED: KETOROLAC TROMETHAMINE 15 MG/ML VIAL IVPUSH PRN (08:42)
[2021-11-20] MEDS: SODIUM CHLORIDE 1,000 ML IV SCH (09:53)
[2021-11-20] MEDS ORDERED: DEXTROSE 5%-WATER - 50 ML IVPB ONE (09:59)
[2021-11-20] MEDS ORDERED: cefTRIAXone SODIUM 1 GM VIAL ONE (09:59)
[2021-11-20] MEDS ORDERED: CEFTRIAXONE 1 GM in DEXTROSE 5%-WATER - 50 ML IVPB SCH (10:00)
[2021-11-20] MEDS ORDERED: FAMOTIDINE 20 MG TABLET PO SCH (10:00)
[2021-11-20] MEDS: FAMOTIDINE 20 MG TABLET PO SCH (10:01)
[2021-11-20 11:56] VITALS: BP 142/67; PULSE 87; TEMP 98.7
== END 2021-11-20 13:11 | disposition home or self-care (01) | DRG 661 ==
LOC: JER 06:33 → JERBED 11:35 → J8W 15:42
PROVIDERS: ADMIT Internal Medicine
PROC: BT1DZZZ Fluoroscopy of Right Kidney, Ureter and Bladder (ICD-10-PCS; 2021-11-19)
PROC: 0T768DZ Dilation of Right Ureter with Intraluminal Device, Via Natural or Artificial Opening Endoscopic (ICD-10-PCS; principal; 2021-11-19 16:30)
DX: N13.6 Pyonephrosis (principal); R10.9 Unspecified abdominal pain; N17.9 Acute kidney failure, unspecified; E11.9 Type 2 diabetes mellitus without complications; E66.9 Obesity, unspecified; Z68.39 Body mass index [BMI] 39.0-39.9, adult
CPT/HCPCS: 36415; 71045-TC-FY; 76000-TC-FY; 76775-TC; 80053; 81003; 82962; 83605; 85025; 85610; 85730; 87040; 87086; 87186; 93005; 93010; 94760; 99285-25; C9803-CS; U0003; U0005